=== PATIENT | female | born 1960 | race Caucasian/White ===

== ENCOUNTER 2018-10-17 22:08 | Emergency (ER) | payer OTHER ==
--- NOTE | 2018-10-17 22:47 | ED Physician Documentation ---
History of Present Illness - Stated complaint Stated Complaint: EYE PX/SWOLLEN FACE/ARZOLA - Chief complaint Chief Complaint: Heent - History obtained from History obtained from: Patient, Family - History of Present Illness Timing: How many days ago (several) Pain level max: 3 Pain level now: 2 Improved by: nothing Worsened by: nothing - Additonal information Additional information: 58 year old female with L upper eyelid swelling and redness for the past few days. states face is now swelling. no fevers. no vision changes. has been using warm compresses for the past several days. nothing makes it better or worse. Review of Systems Constitutional: denies: Fever Eyes: denies: Decreased vision, Photophobia Skin: denies: Rash PD PAST MEDICAL HISTORY - Past Medical History Past Medical History: No - Past Surgical History Past Surgical History: Yes Ortho: Other - Present Medications Home Medications: Ambulatory Orders Medication Instructions Recorded Confirmed Clindamycin HCl [Clindamycin 300MG 300 mg PO Q6H #28 capsule 10/17/18 CAP] - Allergies Allergies/Adverse Reactions: Allergies Allergy/AdvReac Type Severity Reaction Status Date / Time No Known Drug Allergies Allergy Verified 10/17/18 22:17 - Social History Does the pt smoke?: No Smoking Status: Never smoker Does the pt drink ETOH?: Yes ETOH Use: Wine Does the pt have substance abuse?: No - Immunizations Immunizations are current?: No Immunizations: TDAP >10years/unknown - POLST Patient has POLST: No PD ED PE NORMAL - Vitals Vital signs reviewed: Yes - General General: Alert and oriented X 3, No acute distress - HEENT HEENT: Moist mucous membranes, Other (Left upper eyelid redness and swelling. Mild swelling to the periorbital area. No pain with extraocular movements. Pup ils equal round reactive to light. No conjunctival injection. No drainage.) - Neck Neck: Supple, no meningeal sign - Derm Derm: Warm and dry - Neuro Neuro: Alert and oriented X 3 Results - Vitals Vitals: Vital Signs - 24 hr 10/17/18 10/17/18 22:14 23:11 Temperature 36.1 C L Heart Rate 60 72 Respiratory 16 Rate Blood Pressure 131/64 H 118/72 O2 Saturation 100 100 Oxygen O2 Source Room air PD MEDICAL DECISION MAKING - ED course Complexity details: considered differential, d/w patient ED course: 58-year-old female with what appears to be an early periorbital cellulitis. Will place on antibiotics for home. She is well-appearing, nontoxic. No evidence of orbital cellulitis. Patient counseled regarding signs and symptoms for which I believe and urgent re-evaluation would be necessary. Patient with good understanding of and agreement to plan and is comfortable going home at this time This document was made in part using voice recognition software. While efforts are made to proofread this document, sound alike and grammatical errors may occur. Departure - Departure Disposition: 01 Home, Self Care Clinical Impression: Periorbital cellulitis of left eye Condition: Good Instructions: ED Cellulitis Facial Follow-Up: your,doctor in 1week [Other] Prescriptions: Clindamycin HCl [Clindamycin 300MG CAP] 300 mg PO Q6H #28 capsule Comments: Take all antibiotics until gone. Return if you worsen. Your prescriptions were sent to [facility] in [place] Discharge Date/Time: 10/17/18 23:13
[2018-10-17] MEDS ORDERED: CLINDAMYCIN 150 MG CAPSULE PO STA (22:48)
[2018-10-17 23:13] VITALS: BP 118/72
== END 2018-10-17 23:13 | disposition home or self-care (01) ==
LOC: ED 22:08
DX: L03.213 Periorbital cellulitis (principal)
CPT/HCPCS: 99283; A9270